=== PATIENT | male | born 1990 | race Caucasian/White ===

== ENCOUNTER 2017-08-13 08:41 | Emergency (ER) | payer MEDICAID ==
[~2017-08-13] VITALS: Ht 177.8 cm; Wt 72.0 kg
[2017-08-13] MEDS ORDERED: IBUP-1986 PO (10:12)
[2017-08-13] MEDS ORDERED: AMOX-422 PO (10:12)
[2017-08-13] MEDS ORDERED: ANBESOL TP (10:12)
[2017-08-13] MEDS ORDERED: TRAM50TA2 PO (10:12)
[2017-08-13 10:17] VITALS: BP 133/94
== END 2017-08-13 10:18 | disposition home or self-care (01) ==
LOC: ER 08:41
DX: K04.7 Periapical abscess without sinus (principal); Z79.899 Other long term (current) drug therapy
CPT/HCPCS: 99283

== ENCOUNTER 2017-08-17 13:09 | Emergency (ER) | payer MEDICAID ==
[~2017-08-17] VITALS: Ht 177.8 cm; Wt 72.9 kg
[~2017-08-17 13:09] MED LIST: AMOX-422 PO; ANBESOL TP; IBUP-1986 PO; TRAM50TA2 PO
[2017-08-17 13:19] VITALS: BP 136/77
[2017-08-17] MEDS ORDERED: AMOX-422 PO (13:57)
== END 2017-08-17 14:03 | disposition home or self-care (01) ==
LOC: ER 13:10
DX: K02.9 Dental caries, unspecified (principal); Z79.2 Long term (current) use of antibiotics
CPT/HCPCS: 99283

== ENCOUNTER 2018-12-06 15:01 | Emergency (ER) | payer MEDICAID, OTHER ==
[~2018-12-06 15:01] MED LIST changes: -AMOX-422 PO; -ANBESOL TP; -TRAM50TA2 PO
--- NOTE | 2018-12-06 15:50 | NUR ---
PT NOT IN LOBBY X3. ATTEMPTED TO CALL, PHONE IS NOT IN SERVICE. PROVIDER NOTIFIED
== END 2018-12-06 15:56 | disposition left against medical advice (07) ==
LOC: ER 15:01
DX: K08.89 Other specified disorders of teeth and supporting structures (principal); Z53.21 Procedure and treatment not carried out due to patient leaving prior to being seen by health care provider